=== PATIENT | female | born 1960 | race Asian ===

== ENCOUNTER → 2017-09-26 | Outpatient (CLI) | payer OTHER | END | disposition home or self-care (01) | LOC: CFH 06:59 | PROVIDERS: ATTEND Specialist | DX: I10 Essential (primary) hypertension (principal); Q21.0 Ventricular septal defect; C50.011 Malignant neoplasm of nipple and areola, right female breast | CPT/HCPCS: 93306 ==

== ENCOUNTER → 2017-09-26 | Outpatient (CLI) | payer OTHER | END | disposition home or self-care (01) | LOC: PETCFH 06:50 | PROVIDERS: ATTEND Specialist | DX: N63.10 Unspecified lump in the right breast, unspecified quadrant (principal); Z85.3 Personal history of malignant neoplasm of breast | CPT/HCPCS: 78815; A9552 ==

== ENCOUNTER → 2018-02-11 | Outpatient (CLI) | payer OTHER ==
[~2018-02-11] MED LIST: OMNIPAQUE 350 MG/ML, 100ML BOTTLE ONE
== END | disposition home or self-care (01) ==
LOC: RAD 13:01
PROVIDERS: ATTEND Specialist
DX: K76.89 Other specified diseases of liver (principal); C50.011 Malignant neoplasm of nipple and areola, right female breast; M89.9 Disorder of bone, unspecified; C79.51 Secondary malignant neoplasm of bone; C77.3 Secondary and unspecified malignant neoplasm of axilla and upper limb lymph nodes; D05.12 Intraductal carcinoma in situ of left breast
CPT/HCPCS: 71260; 74160; Q9967

== ENCOUNTER → 2018-05-13 | Outpatient (CLI) | payer OTHER | END | disposition home or self-care (01) | LOC: RAD 09:52 | PROVIDERS: ATTEND Specialist | DX: I08.1 Rheumatic disorders of both mitral and tricuspid valves (principal); Q21.0 Ventricular septal defect; M89.9 Disorder of bone, unspecified; N28.1 Cyst of kidney, acquired; K76.89 Other specified diseases of liver; I10 Essential (primary) hypertension | CPT/HCPCS: 71260; 74177; 93306; Q9967 ==

== ENCOUNTER → 2018-06-17 | Outpatient (CLI) | payer OTHER | END | disposition home or self-care (01) | LOC: CFH 07:56 | PROVIDERS: ATTEND Specialist | DX: I08.1 Rheumatic disorders of both mitral and tricuspid valves (principal); I10 Essential (primary) hypertension; C50.011 Malignant neoplasm of nipple and areola, right female breast; Q21.0 Ventricular septal defect | CPT/HCPCS: 93306 ==

== ENCOUNTER → 2018-08-08 | Outpatient (CLI) | payer OTHER | END | disposition home or self-care (01) | LOC: RAD 09:30 | PROVIDERS: ATTEND Specialist | DX: N28.1 Cyst of kidney, acquired (principal); K76.89 Other specified diseases of liver; C50.011 Malignant neoplasm of nipple and areola, right female breast | CPT/HCPCS: 71260; 74177; J1642; Q9967 ==

== ENCOUNTER → 2018-09-03 | Outpatient (CLI) | payer OTHER | END | disposition home or self-care (01) | LOC: EDSTATUS 08-30 15:00 → CFH 14:19 → EDSTATUS 15:00 | PROVIDERS: ATTEND Specialist | DX: I08.3 Combined rheumatic disorders of mitral, aortic and tricuspid valves (principal) | CPT/HCPCS: 93306 ==